=== PATIENT | female | born 1975 | race Caucasian/White ===

== ENCOUNTER 2024-04-16 17:31 | Emergency (ER) | payer MEDICAID ==
[~2024-04-16] VITALS: Ht 160 cm; Wt 60.0 kg
[2024-04-16 17:41] VITALS: BP 158/94; PULSE 76; RESP 18; O2SAT 100
[2024-04-16 19:54] VITALS: TEMP 97.9
[2024-04-16] MEDS: ACETAMINOPHEN 325MG TABLET PO ONE (19:54)
== END 2024-04-16 20:21 | disposition home or self-care (01) ==
LOC: ER 17:31
DX: S00.83XA Contusion of other part of head, initial encounter (principal); Y01.XXXA Assault by pushing from high place, initial encounter; Y93.89 Activity, other specified; Y92.89 Other specified places as the place of occurrence of the external cause; Y99.8 Other external cause status
CPT/HCPCS: 73560; 99284